=== PATIENT | female | born 1990 | race Caucasian/White ===

== ENCOUNTER 2016-08-15 13:23 | Inpatient (IN) | payer OTHER ==
--- NOTE | 2016-08-15 13:41 | ER Document Report ---
ED General <BOBO KIRK - Last Filed: 08/15/16 23:13> - General Mode of Arrival: Medic Information source: Patient TRAVEL OUTSIDE OF THE [place] IN LAST 30 DAYS: No - HPI Onset: Just prior to arrival Onset/Duration: Sudden Quality of pain: Sharp Severity: Severe Pain Level: 5 Associated symptoms: Nausea, Vomiting Exacerbated by: Denies Relieved by: Denies Similar symptoms previously: No Recently seen / treated by doctor: No <ISRRAEL LLANOS - Last Filed: 08/16/16 19:14> - General Chief Complaint: Abdominal Pain Stated Complaint: ABDOMINAL PAIN Notes: Patient presents to the emergency department with complaints of RLQ, back pain, nausea vomiting that started at 10:00 this morning. Patient reports she was eating/drinking, doing fine no problems yesterday and early this am. She reports for the past week she's felt wiped out at night but has a 5-month-old baby. She denies trauma. She denies fever. Patient reports sudden onset of right lower quadrant at 10:00 and radiates to the back. She received 1.5 mg of IV Dilaudid by EMS and she reports pain went away for a little while but came back immediately. Patient reports has history of gluten allergy but denies other past medical history. (ISRRAEL LLANOS) - Related Data Allergies/Adverse Reactions: No Known Allergies Allergy (Verified 08/15/16 13:29) Home Medications: Current Home Medications No Home Medications 08/15/16 [History] Past Medical History - General Information source: Patient Last Menstrual Period: last month - Social History Smoking Status: Never Smoker Cigarette use (# per day): No Frequency of alcohol use: None Drug Abuse: None Lives with: Family Family History: Reviewed & Not Pertinent Patient has suicidal ideation: No Patient has homicidal ideation: No - Medical History Medical History: Negative Renal/ Medical History: Denies: Hx Peritoneal Dialysis Surgical Hx: Negative <ISRRAEL LLANOS - Last Filed: 08/16/16 19:14> Review of Systems <BOBO KIRK - Last Filed: 08/15/16 23:13> <ISRRAEL LLANOS - Last Filed: 08/16/16 19:14> - Review of Systems Notes: Review HPI for review of systems., All other systems negative (ISRRAEL LLANOS) Physical Exam <BOBO KIRK - Last Filed: 08/15/16 23:13> <ISRRAEL LLANOS - Last Filed: 08/16/16 19:14> - Vital signs Vitals: Temp Pulse Resp BP Pulse Ox 97.2 F 89 20 118/72 100 08/15/16 13:23 08/15/16 13:23 08/15/16 13:23 08/15/16 13:23 08/15/16 13:23 (BOBO KIRK) (ISRRAEL LLANOS) - Notes Notes: PHYSICAL EXAMINATION: GENERAL: Looks like she is in pain HEAD: Atraumatic, normocephalic. EYES: Pupils equal round , extraocular movements intact, sclera anicteric, conjunctiva are normal. ENT: nares patent, oropharynx clear without exudates. Moist mucous membranes. NECK: Normal range of motion, supple without lymphadenopathy LUNGS: CTAB and equal. No wheezes rales or rhonchi. HEART: Regular rate and rhythm without murmurs ABDOMEN: Soft,RLQ ttp, No guarding, no rebound BACK: Right flank pain EXTREMITIES: Normal range of motion, no pitting edema. No cyanosis. NEUROLOGICAL: Cranial nerves grossly intact. Normal sensory/motor PSYCH: Normal mood, normal affect. SKIN: Warm, Dry, normal turgor, no rashes or lesions noted, pale (ISRRAEL LLANOS) Course - Laboratory Result Diagrams: 08/15/16 13:33 08/15/16 13:33 <BOBO KIRK - Last Filed: 08/15/16 23:13> - Laboratory Result Diagrams: 08/15/16 13:33 08/15/16 13:33 - Diagnostic Test Radiology reviewed: Image reviewed, Reports reviewed - normal transvaginal US <ISRRAEL LLANOS - Last Filed: 08/16/16 19:14> - Re-evaluation Re-evalutation: On first examination, patient resting quietly, mild tachycardia, no current complaints. On reevaluation patient is more tachycardic despite getting IV fluids, temperature rechecked and found to be 100.9. Given Rocephin. Called urology back, Dr. Marquez will now admit the patient. Patient and family members state understanding and agreement with plan (BOBO KIRK) 08/15/16 14:07 I have consulted the attending provider Dr Muller, per [facility] guidelines 08/15/16 15:43 Patient reports morphine help decrease some of the pain. in to assess patient. Advises fluids and CT abd iv only 08/15/16 17:15 +Kidney stone, patient updated, toradol did not help pain, morphine ordered, dr muller updated on results. Waiting on UA. 08/15/16 18:25 UA back, Dr Marquez contacted via hospital filling and stapling machine operator, he reports her options are medical management or stent placement in a.m. He is off site will be in to see her within the hour. Patient and family updated. 08/15/16 19:15 Dr Marquez here in ED, in with patient. Reports patient may be discharged home with medical pain management Report given to Bobo SMILEY (ISRRAEL LLANOS) - Vital Signs Vital signs: Temp Pulse Resp BP Pulse Ox 98.5 F 53 L 17 101/69 98 08/16/16 13:10 08/16/16 13:10 08/16/16 13:10 08/16/16 13:10 08/16/16 13:10 (BOBO KIRK) (IRSRAEL LLANOS) - Laboratory Laboratory results interpreted by me: 08/15/16 08/15/16 08/15/16 13:33 13:33 17:35 WBC 18.2 H MCH 26.6 L RDW 16.9 H Seg Neutrophils % 85.9 H Lymphocytes % 10.0 L Absolute Neutrophils 15.7 H Glucose 118 H Urine Ketones TRACE H Ur Leukocyte Esterase TRACE H (BOBO KIRK) Discharge <BOBO KIRK - Last Filed: 08/15/16 23:13> <ISRRAEL LLANOS - Last Filed: 08/16/16 19:14> - Discharge Clinical Impression: Ureterolithiasis, Vomiting, Abdominal pain, Kidney stone on right side Condition: Stable Disposition: ADMITTED INPATIENT
[2016-08-15 13:56] LABS: ABSOLUTE BASOPHILS # (AUTO) 0.1 10^3/uL (0.0-0.2); ABSOLUTE LYMPHOCYTES (AUTO) 1.8 10^3/uL (0.5-4.7); ABSOLUTE MONOCYTES (AUTO) 0.6 10^3/uL (0.1-1.4); ABSOLUTE NEUT (AUTO) 15.7 10^3/uL (1.7-8.2); BASOPHILS % (AUTO) 0.3 % (0-2); EOSINOPHILS % (AUTO) 0.2 % (0-6); HEMATOCRIT 39.9 % (36.0-47.0); HEMOGLOBIN 12.8 g/dL (12.0-15.5); HGB HCT DIFFERENCE -1.5; MEAN CORPUSCULAR HEMOGLOBIN 26.6 pg (27.0-33.4); MEAN CORPUSCULAR VOLUME 83 fl (80-97); MONOCYTES % (AUTO) 3.6 % (3-13); RED CELL DISTRIBUTION WIDTH 16.9 % (11.5-14.0); SEGMENTED NEUTROPHILS % (AUTO) 85.9 % (42-78); WHITE BLOOD COUNT 18.2 10^3/uL (4.0-10.5)
[2016-08-15] MEDS ORDERED: HYDROMORPHONE HCL INJ/PF 2 MG/ML AMPULE IV ONE (14:06)
[2016-08-15 14:11] LABS: ANISOCYTOSIS 1+; HYPOCHROMASIA SLIGHT
[2016-08-15 14:14] LABS: ALANINE AMINOTRANSFERASE 23 U/L (9-52); ALBUMIN 4.6 g/dL (3.5-5.0); ALKALINE PHOSPHATASE 111 U/L (38-126); ANION GAP 14 (5-19); ASPARTATE AMINO TRANSFERASE 19 U/L (14-36); BILIRUBIN,TOTAL 0.4 mg/dL (0.2-1.3); BLOOD UREA NITROGEN 14 mg/dL (7-20); CARBON DIOXIDE 23 mmol/L (22-30); CHLORIDE 104 mmol/L (98-107); CREATININE RESULT 0.73 mg/dL (0.52-1.25); GLUCOSE 118 mg/dL (75-110); LIPASE 117.9 U/L (23-300); POTASSIUM 3.7 mmol/L (3.6-5.0); SODIUM 141.3 mmol/L (137-145); TOTAL PROTEIN 7.4 g/dL (6.3-8.2)
[2016-08-15] MEDS ORDERED: MORPHINE SULFATE 10 MG/ML INJ IV ONE ×3 (15:05→18:23)
[2016-08-15] MEDS ORDERED: MORPHINE SULFATE 10 MG/ML INJ ONE ×2 (15:07→18:26)
[2016-08-15] MEDS ORDERED: NORMAL SALINE 1000 ML 1,000 ML IV ONE ×2 (15:43→21:09)
[2016-08-15] MEDS ORDERED: ONDANSETRON HCL INJ/PF 4 MG/2 ML SDV IV ONE ×2 (16:23→19:31)
[2016-08-15] MEDS ORDERED: KETOROLAC TROMETHAMINE INJ/PF 30 MG/1 ML SDV IV ONE ×2 (16:23→22:18)
[2016-08-15] MEDS ORDERED: ONDANSETRON HCL INJ/PF 4 MG/2 ML SDV ONE ×2 (16:24→23:17)
[2016-08-15] MEDS ORDERED: KETOROLAC TROMETHAMINE INJ/PF 30 MG/1 ML SDV ONE (16:24)
[2016-08-15] MEDS ORDERED: TAMSULOSIN HCL 0.4 MG CAP.SR.24H PO ONE (18:14)
[2016-08-15 18:18] LABS: APPEARANCE,URINE CLEAR; BILIRUBIN,URINE NEGATIVE (NEGATIVE); GLUCOSE, URINE NEGATIVE (NEGATIVE); KETONES,URINE TRACE mg/dL (NEGATIVE); LEUKOCYTE ESTERASE,URINE TRACE (NEGATIVE); NITRITE,URINE NEGATIVE (NEGATIVE); PROTEIN,URINE NEGATIVE (NEGATIVE); URINE SPECIFIC GRAVITY 1.034; UROBILINOGEN,URINE NEGATIVE mg/dL (<2.0)
[2016-08-15] MEDS ORDERED: LORAZEPAM INJ 2 MG/1 ML VIAL IV ONE (19:32)
[2016-08-15] MEDS ORDERED: ONDANSETRON ODT 4 MG TAB (6 TAB/DSPK) PO PRN (21:54)
[2016-08-15] MEDS ORDERED: HYDROCODONE/ACETAMINOPHEN 5-325 MG 6 TAB/DSPK PO PRN (21:54)
--- NOTE | 2016-08-15 22:13 | CONSULTATION REPORT E ---
Consultation Report NAME: LIZ TIMMONS : 1990 AGE: 26Y DATE: 08/15/2016 TO: FADI BRICENO M.D. FROM: ISRRAEL LLANOS N.P. Requesting Physician REASON FOR CONSULTATION: Ureteral calculus with renal colic. HISTORY OF PRESENT ILLNESS: The patient is a 26-year-old female, who presented to the emergency room with a complaint of sudden onset of right lower quadrant pain radiating to her right flank associated with nausea and vomiting early this morning. Emergency room CT scan report indicated the presence of a 1.5 cm obstructing right proximal ureteral calculus with a larger right nonobstructing renal calculus. This is the first kidney stone episode for this patient. She denies fever or chills. She denies gross hematuria. She does complain or urinary urgency. She denies dysuria. ALLERGIES: No drug allergies. MEDICATIONS: No medications. PAST SURGICAL HISTORY: No previous surgical procedures. SOCIAL HISTORY: The patient denies tobacco or alcohol use. FAMILY HISTORY: Negative for kidney stones, renal disease, or renal transplantation. PAST AND CURRENT MEDICAL CONDITIONS: Negative for kidney disease, kidney stones or urinary tract infections. REVIEW OF SYSTEMS: The patient denied heart disease, lung disease, diabetes, or stroke. PHYSICAL EXAMINATION: GENERAL: A well-nourished white female in no distress. PERTINENT LABORATORY STUDIES: CBC which indicated a hematocrit of 39.9% with a white cell count of 18,200. Creatinine level was 0.73. IMPRESSION: 1. Right renal colic due to right ureteral calculus. 2. Right nephrolithiasis. PLAN: 1. Encouraged the patient to increase overall fluid intake and strain urine. 2. The size of the stone makes it highly likely that she will be able to pass this stone without surgical intervention. 3. Tamsulosin. 4. Send the patient home with oral analgesics and nausea medication. 5. Followup with Dr. Jordy Torres in the clinic next week. 6. The patient may eventually need management of the larger renal calculus with possible lithotripsy. DICTATING PHYSICIAN: FADI BRICENO M.D. [id number] PHY#: [id number] ID: [id number] JOB#: [id number] ACCT: [id number] cc:FADI BRICENO M.D. >
[2016-08-15] MEDS ORDERED: CEFTRIAXONE 1 GM/D5W RTU 50 ML IV ONE (22:21)
[2016-08-15] MEDS ORDERED: HYDROMORPHONE HCL INJ/PF 2 MG/ML AMPULE ONE (23:17)
[2016-08-15] MEDS: CEFTRIAXONE 1 GM/D5W RTU 1 GM/50 ML RTUPB IV SCH (23:22)
[2016-08-15] MEDS: HYDROMORPHONE HCL INJ/PF 2 MG/ML AMPULE INJ PRN (23:28)
[2016-08-16] MEDS ORDERED: ONDANSETRON 4 MG TAB.RAPDIS ONE ×2 (03:11→03:24)
[2016-08-16] MEDS: DEXTROSE 5%-1/2 NORMAL SALINE 1,000 ML IV PRN ×2 (03:12→07:44)
[2016-08-16] MEDS: HYDROMORPHONE HCL INJ/PF 2 MG/ML AMPULE INJ PRN (04:04)
[2016-08-16] MEDS ORDERED: ONDANSETRON HCL INJ/PF 4 MG/2 ML SDV IV PRN (04:07)
[2016-08-16] MEDS ORDERED: NORMAL SALINE 1000 ML 1,000 ML IV SCH (05:45)
[2016-08-16] MEDS ORDERED: MIDAZOLAM 2 MG/2 ML INJ ONE (07:25)
[2016-08-16] MEDS ORDERED: FENTANYL CITRATE INJ/PF 100 MCG/2 ML AMPUL ONE (07:25)
[2016-08-16] MEDS ORDERED: PROPOFOL INJ 200 MG/20 ML VIAL IV ONE (07:26)
[2016-08-16] MEDS ORDERED: MORPHINE SULFATE 10 MG/ML INJ ONE (07:26)
[2016-08-16] MEDS ORDERED: DEXMEDETOMIDINE INJ 80 MCG/20 ML VIAL IV ONE (07:26)
[2016-08-16] MEDS ORDERED: ACETAMINOPHEN 100 ML IV ONE (07:59)
[2016-08-16] MEDS ORDERED: OPIUM/BELLADONNA ALKALOIDS 30-16.2 MG SUPP.RECT PR ONE ×2 (08:06→08:47)
[2016-08-16] MEDS ORDERED: LIDOCAINE 2% URO-JET 5 ML KIT ONE (08:13)
--- NOTE | 2016-08-16 09:02 | PDOC PROGRESS REPORT ---
Subjective Progress Note for:: 08/16/16 Subjective:: Patient developed fever and tachycardia through the night. We'll proceed with cystoscopy retrograde stent placement this morning. Physical Exam Vital Signs: Temp Pulse Resp BP Pulse Ox 100.9 F H 129 H 20 126/71 H 100 08/16/16 07:44 08/16/16 07:44 08/16/16 07:44 08/16/16 07:44 08/16/16 07:44 Intake & Output 08/15/16 08/16/16 08/17/16 06:59 06:59 06:59 Output Total 200 Balance -200 Results Impressions: Transvaginal US 08/15/16 14:06 IMPRESSION: NORMAL TRANSVAGINAL PELVIC ULTRASOUND. No torsion. Abdomen/Pelvis CT 08/15/16 15:43 IMPRESSION: 1. 5 mm obstructing calculus seen within the proximal right ureter. There is mild right-sided hydronephrosis. There is a larger nonobstructing calculus identified within the renal pelvis on the right. No hydronephrosis or nephrolithiasis identified on left. 2. No evidence of acute appendicitis. Assessment & Plan - Diagnosis (1) Ureterolithiasis Is this a current diagnosis for this admission?: Yes - Inpatient Certification Based on my medical assessment, after consideration of the patient's comorbidities, presenting symptoms, or acuity I expect that the services needed warrant INPATIENT care.: Yes I certify that my determination is in accordance with my understanding of Medicare's requirements for reasonable and necessary INPATIENT services [42 CFR 412.3e].: Yes Medical Necessity: Failure to Improve With Outpatient Therapy - Plan Summary Plan Summary: Cystoscopy with retrograde and stent placement procedure risk, benefits, and alternatives were reviewed with the patient and her mother and they seemed to understand and would like proceed.
[2016-08-16] MEDS ORDERED: OXYCODONE-ACETAMINOPHEN 5-325 MG TABLET PO PRN ×3 (09:06→10:07)
--- NOTE | 2016-08-16 09:10 | Operative Report ---
Operative Report DATE OF SURGERY: 08/16/16 Operative Report: After adequate general anesthesia had been obtained, patient was placed into dorsal lithotomy position and the perineum was prepped and draped in the usual fashion. Fluoroscopy revealed right hydronephrosis with residual contrast from the CT scan done yesterday to the level of a distal 1-2 mm stone. The 21 Frankie present coupled to the camera and advanced into the bladder. Bladder was emptied thoroughly inspected. Bladder tumors were identified. A 0.035 Glidewire was then advanced through the scope advanced up the right ureter under fluoroscopic guidance. A 6 x 24 cm double pigtail stent was then advanced over the guidewire and positioned in the ureter using fluoroscopic guidance. Guidewire was removed taking care to leave the stent in position. The retrieval suture on the stent was left intact. The bladder was then drained and the cystoscope was removed. Approximately 10 mL of Viscous Xylocaine was instilled within the urethra and the bladder. A B and O suppository was placed. The procedure was then terminated and patient transferred to the recovery room in stable condition. PREOPERATIVE DIAGNOSIS: 1. Right ureterolithiasis with hydronephrosis. 2. Probable urinary sepsis POSTOPERATIVE DIAGNOSIS: Same OPERATION: 1. Cystoscopy with right double pigtail stent placement. 2. Fluoroscopy SURGEON: Tmi Marquez MD ANESTHESIA: GA TISSUE REMOVED OR ALTERED: None COMPLICATIONS: None ESTIMATED BLOOD LOSS: none INTRAOPERATIVE FINDINGS: 1. Right hydronephrosis with distal ureteral calculus. 2. Pyuria and pyonephrosis
[2016-08-16] MEDS ORDERED: ONDANSETRON 4 MG TAB.RAPDIS PO PRN (10:08)
[2016-08-16] MEDS ORDERED: LIDOCAINE 2% INJ-PF (20 MG/ML) 10 ML AMPUL ONE (10:40)
[2016-08-16] MEDS ORDERED: DEXAMETHASONE SOD PHOSPHATE INJ 4 MG/1 ML VIAL ONE (10:40)
[2016-08-16] MEDS ORDERED: PHENYLEPHRINE HCL INJ/PF 10 MG/1 ML SDV ONE (10:40)
[2016-08-16] MEDS ORDERED: SUCCINYLCHOLINE CHLORIDE INJ 200 MG/10 ML VIAL ONE (10:40)
[2016-08-16] MEDS: MORPHINE SULFATE 10 MG/ML INJ IV PRN ×2 (10:48→10:50)
[2016-08-16] MEDS: FENTANYL CITRATE INJ/PF 100 MCG/2 ML AMPUL IV PRN ×7 (10:48→10:52)
[2016-08-16] MEDS: PROMETHAZINE HCL INJ 25 MG/1 ML VIAL IV PRN ×4 (10:48→10:50)
[2016-08-16] MEDS: DIPHENHYDRAMINE HCL 50 MG/ML VIAL IV PRN ×3 (10:48→10:52)
[2016-08-16] MEDS: CEFTRIAXONE 1 GM/D5W RTU 1 GM/50 ML RTUPB IV SCH (10:48)
[2016-08-16] MEDS: MEPERIDINE HCL/PF INJ 25 MG/1 ML DISP.SYRIN IV PRN ×2 (10:48→10:50)
[2016-08-16 13:57] VITALS: BP 101/69
[2016-08-16] MEDS ORDERED: CIPROFLOXACIN HCL 500 MG TABLET PO SCH (18:00)
[2016-08-16] MEDS ORDERED: TOLTERODINE TARTRATE 1 MG TABLET PO SCH (22:00)
--- NOTE | 2016-08-25 09:57 | Physician Advisory Note ---
Physician Advisor ProgressNote .: [facility], I have reviewed the medical record for this patient. Physician Advisor Statement: Discussed with attending surgeon on 08/25/16. He confirms he felt this pt had sepsis during this admission due to UTI, given her developing persistent tachycardia, fevers, tachypnea, in setting of obstructive nephrolithiasis/ hydronephrosis with pyonephrosis. He will dictate an addendum clarifying dx. "Pyonephrosis" means kidney is filled with pus from infection developing proximal to an obstruction. This pt initially came in with HR 89, RR20, BP 118/ 72, WBC 18.2, then developed tachycardia as high as 129, recurrent fevers to 100.9, increasingly persistent tachypnea as high as 47, & episodic hypotension as low as 94/81. When she showed increasing hemodynamic instability, urologist ordered NOW dose of IV Rocephin with continued doses q12hrs, continued IVF, & arranged for expedited cystoscopy with stenting to allow the source of infection to clear. Certainly without his prompt tx, this patient would have continued to worsen quickly, which could have led to MANNY/destruction of kidney tissue, septic shock & even . Dx of "sepsis due to UTI/pyonephrosis/ obstructing ureteral calculus" is well supported in this case. Alea Carroll MD [facility] Physician Advisor, Fellow of [facility] Medicine
--- NOTE | 2016-08-25 12:08 | DISCHARGE SUMMARY E ---
Discharge Summary NAME: LIZ TIMMONS : 1990 AGE: 26Y ADMITTED: 08/15/2016 DISCHARGED: 08/16/2016 FINAL DIAGNOSIS: 1. SEPSIS, DUE TO PYONEPHROSIS WITH OBSTRUCTION, ASSOCIATED WITH FEVERS, LEUKOCYTOSIS, TACHYCARDIA, TACHYPNEA, WHICH WAS TREATED WITH IV FLUIDS, PROMPT SURGICAL RELIEF OF OBSTRUCTING URETERAL STONE, IV ROCEPHIN, AND THEN CIPRO ORALLY. THE CULTURE RESULTS OF THE AFFECTING ORGANISM WERE UNKNOWN AT THE PRESENT TIME. 2. RIGHT URETERAL LITHIASIS WITH HYDRONEPHROSIS AND RENAL COLIC. PROCEDURE: Cystoscopy with retrograde stent placement and fluoroscopy. DISCHARGE MEDICATIONS: Cipro 250 mg twice a day for 7 days. DISCHARGE ACTIVITY: Drink plenty of fluids and may return to work in 1 week. DISCHARGE FOLLOWUP: Follow up with local urologist for lithotripsy and stent retrieval. PRESENTATION: The patient is a 26-year-old female who presented to the emergency room on August 15, with sudden onset of sharp right lower quadrant pain radiating to her back, associated with nausea and vomiting. CT scan indicated a 1.5 cm obstructing stone. This was the first kidney stone episode for this patient. She denied hematuria or dysuria. She did have urinary urgency. White cell count was 18,200. HOSPITAL COURSE: Initial plan on consultation in the emergency room was outpatient management with Tamsulosin, analgesics, and antiemetics. However, the patient developed fever, tachycardia, and tachypnea while in the emergency room and she was admitted to the hospital for IV fluids and surgical intervention. She underwent cystoscopy with stent placement on August 15. After the procedure, she promptly defervesced and was tolerating regular diet without significant pain. POST-DISCHARGE FINDINGS: After discharge, the culture results indicated staph epidermidis and group B strep. DICTATING PHYSICIAN: FADI BRICENO M.D. [id number] PHY#: [id number] ID: [id number] JOB#: [id number] ACCT: [id number] cc:FADI BRICENO M.D. >
--- NOTE | 2016-08-27 09:58 | CONSULT/HISTORY AND PHYSICAL E ---
Consultation/History and Physical PATIENT NAME: LIZ TIMMONS : 1990 AGE: 26Y DATE: 08/15/2016 ROOM: [facility] REASON FOR CONSULTATION: Ureteral calculus with renal colic. HISTORY OF PRESENT ILLNESS: The patient is a 26-year-old female, who presented to the emergency room with a complaint of sudden onset of right lower quadrant pain radiating to her right flank associated with nausea and vomiting early this morning. Emergency room CT scan report indicated the presence of a 1.5 cm obstructing right proximal ureteral calculus with a larger right nonobstructing renal calculus. This is the first kidney stone episode for this patient. She denies fever or chills. She denies gross hematuria. She does complain or urinary urgency. She denies dysuria. ALLERGIES: No drug allergies. MEDICATIONS: No medications. PAST SURGICAL HISTORY: No previous surgical procedures. SOCIAL HISTORY: The patient denies tobacco or alcohol use. FAMILY HISTORY: Negative for kidney stones, renal disease, or renal transplantation. PAST AND CURRENT MEDICAL CONDITIONS: Negative for kidney disease, kidney stones or urinary tract infections. REVIEW OF SYSTEMS: The patient denied heart disease, lung disease, diabetes, or stroke. PHYSICAL EXAMINATION: GENERAL: A well-nourished white female in no distress. PERTINENT LABORATORY STUDIES: CBC which indicated a hematocrit of 39.9% with a white cell count of 18,200. Creatinine level was 0.73. IMPRESSION: 1. Right renal colic due to right ureteral calculus. 2. Right nephrolithiasis. PLAN: 1. Encouraged the patient to increase overall fluid intake and strain urine. 2. The size of the stone makes it highly likely that she will be able to pass this stone without surgical intervention. 3. Tamsulosin. 4. Send the patient home with oral analgesics and nausea medication. 5. Followup with Dr. Jordy Torres in the clinic next week. 6. The patient may eventually need management of the larger renal calculus with possible lithotripsy. DICTATING PHYSICIAN: FADI BRICENO M.D. [id number] PHY#: [id number] ID: [id number] JOB#: [id number] ACCT: [id number] cc:FADI BRICENO M.D. >
== END 2016-08-16 15:50 | disposition home or self-care (01) | DRG 872 ==
LOC: ER 13:23 → EH 22:48 → 2N 08-16 02:37
PROVIDERS: ATTEND Urology
PROC: 0T768DZ Dilation of Right Ureter with Intraluminal Device, Via Natural or Artificial Opening Endoscopic (ICD-10-PCS; principal; 2016-08-15)
PROC: BT1D1ZZ Fluoroscopy of Right Kidney, Ureter and Bladder using Low Osmolar Contrast (ICD-10-PCS; 2016-08-15)
DX: A41.1 Sepsis due to other specified staphylococcus (principal); N13.2 Hydronephrosis with renal and ureteral calculous obstruction; N13.6 Pyonephrosis; B95.1 Streptococcus, group B, as the cause of diseases classified elsewhere; Z91.02 Food additives allergy status
CPT/HCPCS: 36415; 74177; 74420; 76830; 80053; 81001; 83690; 84703; 85025; 87040; 87077; 87086; 87088; 87186; 910; 93976; 96361; 96374; 96375; 96376; 99285; C1758; C2617; J0131; J0330; J0696; J1100; J1170; J1885; J2060; J2250; J2270; J2370; J2405; J2704; J3010; J3490; J7030

== ENCOUNTER 2016-08-27 12:25 | Day surgery (SDC) | payer OTHER ==
[2016-08-27] MEDS ORDERED: FENTANYL CITRATE INJ/PF 250 MCG/5 ML AMPULE ONE ×2 (13:10)
[2016-08-27] MEDS ORDERED: MIDAZOLAM 2 MG/2 ML INJ ONE (13:10)
--- NOTE | 2016-09-11 10:44 | Operative Report ---
Operative Report DATE OF SURGERY: 08/27/16 PREOPERATIVE DIAGNOSIS: R Renal Calculi POSTOPERATIVE DIAGNOSIS: Same OPERATION: ESWL SURGEON: SIMEON SMITH ANESTHESIA: Moderate Sedation TISSUE REMOVED OR ALTERED: No COMPLICATIONS: None ESTIMATED BLOOD LOSS: None INTRAOPERATIVE FINDINGS: As above PROCEDURE: The patient was brought to the mobile lithotripsy OR where she was placed supine on the litho table, followd by induction of moderate IV sedation. The two stones in the R collecting system were sequentially localized flouroscopically, and were treated with a total of 3500 shocks with apparent excellent fragmentation. The procedure was rossy'd well, there were no complications. She was allowed to awaken, and was transported to the in good condition.
== END 2016-08-27 15:51 | disposition home or self-care (01) ==
LOC: SC 12:25
PROVIDERS: ATTEND Urology
PROC: 0TF3XZZ Fragmentation in Right Kidney Pelvis, External Approach (ICD-10-PCS; principal; 2016-08-27 13:30)
DX: N20.0 Calculus of kidney (principal); N20.1 Calculus of ureter; Z79.899 Other long term (current) drug therapy; Z87.440 Personal history of urinary (tract) infections
CPT/HCPCS: 50590; J2250; J3010

== ENCOUNTER → 2016-09-03 | Outpatient (CLI) | payer OTHER | LOC: OD 08:04 | PROVIDERS: ATTEND Urology | DX: N20.0 Calculus of kidney (principal) | CPT/HCPCS: 74000 ==

== ENCOUNTER → 2016-09-07 | Outpatient (CLI) | payer OTHER | LOC: RAD 11:01 | PROVIDERS: ATTEND Urology | DX: N39.0 Urinary tract infection, site not specified (principal) | CPT/HCPCS: 76775 ==

== ENCOUNTER → 2017-01-13 | Outpatient (CLI) | payer OTHER ==
[2017-01-25 18:37] LABS: COLOR Tan (.)
== END ==
LOC: OD 16:23
PROVIDERS: ATTEND Urology
DX: N20.0 Calculus of kidney (principal)
CPT/HCPCS: 82370